=== PATIENT | male | born 2000 | race Caucasian/White ===

== ENCOUNTER 2024-12-23 13:24 | Emergency (ER) | payer MEDICAID, SELFPAY ==
[2024-12-23 13:25] VITALS: BMI 20.7
[2024-12-23 14:05] VITALS: BP 144/87; PULSE 88; RESP 20; TEMP 36.8; O2SAT 99
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
[2024-12-23] MEDS: LIDOCAINE HCL 1% 20 ML VIAL 10 ML INFL (15:00)
[2024-12-23] MEDS: IBUPROFEN TAB 400 MG TABLET 800 MG PO (16:21)
[2024-12-23] MEDS: DOXYCYCLINE 100 MG TABLET PO (16:21)
== END 2024-12-23 18:05 | disposition home or self-care (01) ==
LOC: SERX 16:35
PROVIDERS: Emergency Provider Emergency Medicine; PCP Family Medicine
DX: S51.812A Laceration without foreign body of left forearm, initial encounter (principal); V19.3XXA Pedal cyclist (driver) (passenger) injured in unspecified nontraffic accident, initial encounter; Y93.55 Activity, bike riding
CPT/HCPCS: 12002; 73090; 99284; J3490; A9270